=== PATIENT | male | born 1955 | race Caucasian/White ===

== ENCOUNTER → 2022-07-23 | Day surgery (SDC) | payer MEDICARE, OTHER ==
[2022-07-21 12:21] LABS: BASOPHILS % 0.6 % (0.0-1.0); EOSINOPHILS # (AUTO) 0.1 (0.0-0.4); EOSINOPHILS % 2.1 % (0.0-6.0); HEMATOCRIT 50.5 % (38.2-49.6); HEMOGLOBIN 15.6 g/dL (14.0-18.0); LYMPHOCYTES # (AUTO) 1.7 (1.0-3.2); LYMPHOCYTES % 27.1 % (18.0-39.1); MEAN CORPUSCULAR HEMOGLOBIN 31.3 pg (28-32); MEAN CORPUSCULAR HGB CONC 30.9 g/dL (31-35); MEAN CORPUSCULAR VOLUME 101.2 fL (81-99); MONOCYTES # (AUTO) 0.8 (0.2-0.8); MONOCYTES % 12.3 % (4.4-11.3); NEUTROPHILS # (AUTO) 3.6 (2.1-6.9); NEUTROPHILS % 57.6 % (38.7-80.0); PLATELET COUNT 228 x10e3/uL (140-360); RED BLOOD COUNT 4.99 x10e6/uL (4.3-5.7); RED CELL DISTRIBUTION WIDTH 11.9 % (11.7-14.4)
[2022-07-21 12:38] LABS: ANION GAP 9.8 mmol/L (8-16); CALCIUM 9.6 mg/dL (8.4-10.2); CREATININE, SERUM 0.82 mg/dL (0.72-1.25); POTASSIUM 4.8 mmol/L (3.5-5.1)
[~2022-07-23] MED LIST: ASPIR 8181 MG PO; B12; BUPIVACAINE HCL 0.5% INJ 30 ML VIAL INJ ONE; CEFAZOLIN SODIUM 2 GM ONE; CITALOPRAM HBR20 MG PO; COQ1050 MG; DEXAMETHASONE SOD PHOS INJ 4 MG/ML SDV ONE; DEXILANT60 MG PO; FENTANYL CITRATE/PF 100MCG/2 ML INJ ONE; FISH OIL 1,0001 EAC1 PO; GABAPENTIN600 MG; GLUCOSAMINE &1 EACH; HYDROCODON-ACE1 EAC9 PO; KETOROLAC TROMETHAMINE 30 MG/ML VIAL ONE; LIDOCAINE HCL 2% LOCAL INJ 5 ML SDV VIAL INJ ONE; LISINOPRIL10 MG PO; LOSARTAN POTASS25 MG PO; MELOXICAM15 MG; METOPROLOL TART25 MG PO; MIDAZOLAM HCL 5 MG/ML VIAL ONE; MULTI-VITAMIN1 EACH PO; NEOSTIGMINE 1 MG/ML 10ML VIAL ONE; ONDANSETRON HCL INJ 2MG/ML 2ML 2 MG/ML VIAL ONE; PLAVIX75 MG PO; POTASSIUM; POVIDONE IODINE 0.05% 0.05 % ML PO ONE; PROPOFOL IV EMULSION 10 MG/ML 20 ML VIAL ONE; PROTONIX20 MG PO; SEVOFLURANE INHAL SOLN 250 ML PEN BTL ONE; SIMVASTATIN20 MG PO; TERBINAFINE HC250 MG PO; VITAMIN C1000 MG PO; VITAMIN D310 MCG; ZOLPIDEM TARTRA10 MG PO
[2022-07-23 09:40] VITALS: BP 141/80
== END | disposition home or self-care (01) ==
LOC: OR 05:32
PROVIDERS: ATTEND Podiatrist Foot Surgery
DX: M21.621 Bunionette of right foot (principal); M67.471 Ganglion, right ankle and foot; L98.8 Other specified disorders of the skin and subcutaneous tissue; J44.9 Chronic obstructive pulmonary disease, unspecified; I25.10 Atherosclerotic heart disease of native coronary artery without angina pectoris; I25.2 Old myocardial infarction; I10 Essential (primary) hypertension; F17.200 Nicotine dependence, unspecified, uncomplicated; Z01.812 Encounter for preprocedural laboratory examination; Z01.818 Encounter for other preprocedural examination; Z79.02 Long term (current) use of antithrombotics/antiplatelets; Z79.82 Long term (current) use of aspirin; Z79.899 Other long term (current) drug therapy; Z95.5 Presence of coronary angioplasty implant and graft
CPT/HCPCS: 28090; 28110; 36415; 71046; 76000; 80048; 85025; 88304; J1100; J1885; J2001; J2250; J2405; J2704; J2710; J3010